=== PATIENT | female | born 2000 | race Caucasian/White ===

== ENCOUNTER → 2020-04-25 | Outpatient (CLI) | payer OTHER ==
--- NOTE | 2020-05-03 08:49 | REP ---
COMPLETE ABDOMINAL SONOGRAPHY HISTORY: Abdomen pain. COMPARISON IMAGING: None. FINDINGS: Scanning through the right upper quadrant of the abdomen demonstrates a normal sized thin walled gallbladder without evidence of stone or polyp. Common bile duct is normal measuring 0.6 cm in greatest diameter. Liver is normal in size and homogeneous in texture. No focal liver lesion is seen. No pancreatic abnormality is observed. There is no evidence of ascites. A normal caliber, 1.7 cm AP, aorta is seen. Renal cortical echogenicity pattern is normal and renal contours are smooth bilaterally. There is no evidence of hydronephrosis, cyst, mass, or calculus. Right renal dimensions are 11.5 x 5.2 x 4.1 cm. Left kidney measures 10.8 x 5.7 x 4.2 cm. The spleen is normal in size and homogeneous in texture, 10.4 cm greatest diameter. IMPRESSION: Negative complete abdominal sonography. MTDD
== END ==
LOC: M RAD 07:46
PROVIDERS: ATTEND Internal Medicine
DX: R11.0 Nausea (principal); R10.9 Unspecified abdominal pain